=== PATIENT | female | born 1945 | race Caucasian/White ===

== ENCOUNTER 2016-04-13 09:20 | Day surgery (SDC) | payer OTHER ==
[2016-04-12 13:09] LABS: HEMATOCRIT 25.7 % (37.0-47.0); HEMOGLOBIN 7.7 g/dL (12.0-16.0); MCV 93.5 FL (81-99); MPV 9.2 FL (7.4-10.4); RBC 2.75 XMIL (4.2-5.4)
[2016-04-13] MEDS ORDERED: BENADRYL ONE (09:27)
[2016-04-13] MEDS ORDERED: NS 250 ML ONE (09:27)
[2016-04-13] MEDS ORDERED: TYLENOL ONE (09:27)
[2016-04-13 13:34] VITALS: BP 138/74
== END 2016-04-13 13:38 | disposition home or self-care (01) ==
LOC: OPS 09:20
PROVIDERS: ATTEND Internal Medicine Hematology & Oncology
DX: D64.9 Anemia, unspecified (principal); Z79.02 Long term (current) use of antithrombotics/antiplatelets; Z79.899 Other long term (current) drug therapy
CPT/HCPCS: 36430; 85027; 86850; 86900; 86901; 86920; J7050; P9016